=== PATIENT | female | born 1930 | race Caucasian/White ===

== ENCOUNTER 2019-02-21 17:36 | Emergency (ER) | payer OTHER ==
[~2019-02-21] VITALS: Ht 154.9 cm; Wt 60.3 kg
[~2019-02-21 17:36] MED LIST: ACETAMINOPHEN325 M1 PO; ARIXTRA SQ; ASPIRIN325 PO; ASPIRIN81 M2 PO; CALTRATE-600 W1 EACH PO; COLACE100 MG PO; FERRO-TIME325 MG PO; FOSAMAX40 MG PO; LEVOTHYR; LEVOTHYROXINE0.05 MG PO; LEVOXYL100 MCG PO; LISINOPRIL2.5 MG PO; LISINOPRIL40 MG PO; LOPRESSOR PO; LOVASTAT20; LOVASTAT20 PO; METAMUCIL283 GM PO; MEVACOR10 MG PO; MOM PO; Metoprolol Tartrate PO; OCUVITE TABLET1 EAC1 PO; OXYCODONE HCL 55 MG PO; PERCOCET 5-3251 EACH PO; PROTONIX40 MG PO; TOPROL XL50 MG PO; TRAMADOL 50 MG50 MG PO; Vitamin D PO; [UNRECOGNIZED DRUG - OTHER]
[2019-02-21 18:15] LABS: ABSOLUTE BASOPHILS 0.1 thou/uL (0.0-0.2); ABSOLUTE EOSINOPHILS 0.4 thou/uL (0.0-0.7); ABSOLUTE LYMPHOCYTES 2.2 thou/uL (0.8-5.3); ABSOLUTE MONOCYTES 0.8 thou/uL (0.0-1.2); ABSOLUTE NEUTROPHILS 5.8 thou/uL (1.6-8.1); BASOPHILS 1.2 %; EOSINOPHILS 3.8 %; HEMATOCRIT 36.1 % (37.0-47.0); HEMOGLOBIN 12.4 gm/dL (12.0-15.0); LYMPHOCYTES 23.3 %; MCH 28.4 pg (26.0-34.0); MCHC 34.4 g/dL (28.0-37.0); MCV 82.5 fL (80.0-100.0); MONOCYTES 8.8 %; NUCLEATED RBCS 0 /100WBC; PLATELET COUNT* 255 thou/uL (150-400); POLYS 62.9 %; RBC 4.38 mil/uL (4.20-5.00); RDW-CV 15.4 % (10.5-14.5); WBC 9.3 thou/uL (4.0-11.0)
[2019-02-21 18:22] LABS: CALCIUM 8.5 mg/dL (8.5-10.1); CREATININE 1.3 mg/dL (0.6-1.3); POTASSIUM 3.5 mmol/L (3.5-5.1)
[2019-02-21 18:33] LABS: ALBUMIN 3.6 g/dL (3.4-5.0); TOTAL BILIRUBIN 0.3 mg/dL (<0.1-1.0); TOTAL PROTEIN 7.6 g/dL (6.4-8.2)
[2019-02-21 19:35] LABS: INFLUENZA A ANTIGEN Negative (Negative); INFLUENZA B ANTIGEN Negative (Negative)
[2019-02-21] MEDS ORDERED: PREDNISONE 20 M20 M1 PO (20:05)
[2019-02-21] MEDS ORDERED: VENTOLIN HFA 1818 GM INH (20:05)
[2019-02-21] MEDS ORDERED: ZPAK PO (20:05)
[2019-02-21 20:20] VITALS: BP 169/62
--- NOTE | 2019-02-22 12:35 | EKG ---
[place] [address] ELECTROCARDIOGRAM REPORT Name: CHEMA ROMO Room: [facility]#: [id number] Admission: 02/21/19 Attend Phys: Discharge: 02/21/19 Date of : [birth year] Report #: [id number] THIS REPORT FOR: //name// [facility] ED Test Date: 2019-02-21 Test Time: 18:23:35 Pat Name: CHEMA ROMO Department: Room: Gender: F Director Data Architecture: MARCELLE : 1930 Requested By: Cesra Henning Order Number: [id number] MD: Louis Love Measurements Intervals Gill Rate: 83 P: 60 UT: 194 QRS: -36 QRSD: 180 T: 100 QT: 429 QTc: 505 Interpretive Statements Sinus rhythm Atrial premature complex Left bundle branch block Baseline wander in lead(s) I,III,aVL,aVF,V3 Compared to ECG 11/28/2012 14:31:24 Atrial premature complex(es) now present Left bundle-branch block now present ST (T wave) deviation no longer present Prolonged QT interval no longer present Electronically Signed On 02-22-2019 12:34:54 DEPARTMENT HELPER by Louis Love [email or web address] <ELECTRONICALLY SIGNED> By: Louis Love MD, [facility] 02/22/19 1234 182 182 Louis Love MD, [facility] /EPI
== END 2019-02-21 20:24 | disposition home or self-care (01) ==
LOC: M.ERS 17:36
PROVIDERS: Emergency Medicine Emergency Medical Services; Family Medicine
DX: J40 Bronchitis, not specified as acute or chronic (principal); I10 Essential (primary) hypertension; E03.9 Hypothyroidism, unspecified; Z90.89 Acquired absence of other organs; Z88.0 Allergy status to penicillin